=== PATIENT | female | born 1985 | race African-American/Black ===

== ENCOUNTER 2020-12-13 14:40 | Emergency (ER) | payer SELFPAY ==
[~2020-12-13] VITALS: Ht 172.7 cm; Wt 81.0 kg
[2020-12-13 17:23] LABS: BASOPHILS % 0.5 % (0.0-2.0); EOSINOPHILS % 2.5 % (0.0-5.0); HEMATOCRIT. 32.9 % (36.0-48.0); HEMOGLOBIN. 10.8 g/dL (12.0-16.0); MEAN CORPUSCULAR HEMOGLOBIN 26.7 pg (28.0-32.0); MEAN CORPUSCULAR VOLUME 81.2 fL (81.0-99.0); MEAN PLATELET VOLUME 8.2 fl (7.4-10.4); MONOCYTES % 10.2 % (2.0-8.0); NEUTROPHILS % 39.8 % (40.0-76.0); PLATELET 277 x1000/uL (130-400); RED BLOOD CELL COUNT 4.05 mill/uL (4.2-5.4); RED CELL DISTRIBUTION WIDTH 18.2 % (11.6-14.6)
[2020-12-13 17:27] LABS: PROTHROMBIN TIME 10.3 sec (9.6-11.0)
[2020-12-13 17:27] LABS: CHLORIDE 107 mEq/L (98-107)
[2020-12-13 17:31] LABS: ETHANOL BLOOD 168 mg/dL
[2020-12-13 17:35] LABS: HCG SCREEN NEGATIVE
[2020-12-13 19:00] VITALS: BP 98/66
== END 2020-12-13 19:26 | disposition home or self-care (01) ==
LOC: ER 14:40
DX: R55 Syncope and collapse (principal); F10.129 Alcohol abuse with intoxication, unspecified; Z98.890 Other specified postprocedural states; Y90.6 Blood alcohol level of 120-199 mg/100 ml
CPT/HCPCS: 36415; 70450; 80053; 80320; 84703; 85025; 85610; 99285; Z7610; G0480